=== PATIENT | female | born 1990 | race African-American/Black ===

== ENCOUNTER 2017-10-10 17:36 | Emergency (ER) | payer OTHER ==
--- NOTE | 2017-10-10 19:15 | CPEKG ---
Heart Rate: 91 RR Interval: 659 P-R Interval: 156 QRSD Interval: 78 QT Interval: 352 QTC Interval: 434 P Prospect: 45 QRS Prospect: 64 T Wave Prospect: 43 EKG Severity - NORMAL ECG - EKG Impression: SINUS RHYTHM Electronically Signed By: Cedrick Martin 13-Oct-2017 09:01:02
[2017-10-10] MEDS ORDERED: NS 1,000 ML IV ONE (19:40)
[2017-10-10] MEDS ORDERED: LORazepam 2 MG/ML INJ IVP ONE (19:40)
[2017-10-10 19:45] LABS: PLATELET COUNT 282 10^3/uL (150-400)
[2017-10-10] MEDS ORDERED: LORAZEPAM 1 MG PREPACK#4 BTL TAKEHOME ONE (20:58)
--- NOTE | 2017-10-10 20:58 | EDPHY ---
H & P Stated Complaint: CHEST TIGHTNESS AND DIARRHEA FOR 2.5 HRS - Personal History LMP (Females 10-55): Now Current Tetanus Diphtheria and Acellular Pertussis (TDAP): Yes - Medical/Surgical History Hx Asthma: No Hx Chronic Respiratory Disease: No Hx Diabetes: No Hx Cardiac Disease: No Hx Renal Disease: No Hx Cirrhosis: No Hx Alcoholism: No Hx HIV/AIDS: No Hx Splenectomy or Spleen Trauma: No Other PMH: SPINAL FUSION '06, DIOGO BREAST LUMPS REMOVED - Social History Smoking Status: Never smoked Time Seen by Provider: 10/10/17 19:06 HPI/ROS: Chief complaint: Palpitations, abdominal discomfort and diarrhea History of present illness: This is a 27-year-old female who presents to the emergency department for palpitations, abdominal discomfort and diarrhea. She reports the onset of symptoms today. That been persistent. She states she is under lot of stress and this feels like a stress reaction to her. She has had similar anxiety issues in the past. She denies other precipitating factors. She denies alleviating factors. She denies other associated signs or symptoms including no fevers, no nausea vomiting, no blood in stools, no urinary symptoms , no cough or trouble breathing, no pain or swelling in the legs. Review of systems: A 10 point review of systems was obtained and other than described above was negative (Will Heath) - Physical Exam Exam: General Appearance: Alert, nontoxic. Eyes: Pupils equal and round no pallor or injection. ENT, Mouth: Mucous membranes moist. Respiratory: There are no retractions, lungs are clear to auscultation. Cardiovascular: Regular rate and rhythm. Gastrointestinal: Abdomen is soft and non tender, no masses, bowel sounds normal. Neurological: Alert and oriented x4. Strength and sensation intact and symmetrical. Skin: Warm and dry, no rashes. Musculoskeletal: Neck is supple non tender. Extremities are symmetrical, full range of motion. No evidence of DVT by physical exam. Psychiatric: Patient is oriented X 3, there is no agitation. (Will Heath) Constitutional: Initial Vital Signs Temperature (C) 36.8 C 10/10/17 17:56 Heart Rate 97 10/10/17 17:56 Respiratory Rate 16 10/10/17 17:56 Blood Pressure 119/79 10/10/17 17:56 O2 Sat (%) 95 10/10/17 17:56 O2 Delivery Mode Room Air Allergies/Adverse Reactions: sulfamethoxazole [From Bactrim] Allergy (Verified 10/10/17 17:56) trimethoprim [From Bactrim] Allergy (Verified 10/10/17 17:56) Home Medications: Medication Instructions Recorded Claritin 10/10/17 Medical Decision Making ED Course/Re-evaluation: Patient is discussed with my secondary supervising physician Dr. Carmencita Damian. Patient presents with palpitations, abdominal discomfort and diarrhea. She is nontoxic. Her vital signs are stable. Physical exam is benign. Laboratory studies largely unremarkable. She has been IV hydrated and treated with 0.5 mg of Ativan. She is feeling much better. I believe this is likely anxiety related. I do not believe further evaluation or inpatient management is warranted at this time. She will be discharged home with a prepack of Ativan. It's use has been discussed. Home care has been discussed. She is to follow up with her primary care doctor next week for recheck. Strict return precautions were given. The patient voiced understanding and agreement with plan. (Will Heath) Differential Diagnosis: Included but not limited to anxiety, cardiac dysrhythmia, gastritis, gastroenteritis, biliary tract disease, (Will Heath) Other Provider: The patient was evaluated and managed by the Physician Automotive Service Professional. I discussed the patient's presentation and course with the midlevel provider with them and agree with the evaluation. My co-signature indicates that I have reviewed this chart and I agree with the findings and plan of care as documented. I am the secondary supervising physician. (Carmencita Damian) - Data Points Laboratory Results: Laboratory Results 10/10/17 19:23 10/10/17 19:23 Medications Given: Discontinued Medications Sodium Chloride (Ns) 1,000 mls @ 0 mls/hr IV EDNOW ONE; Wide Open PRN Reason: Protocol Stop: 10/10/17 19:41 Last Admin: 10/10/17 19:48 Dose: 1,000 mls Lorazepam (Ativan Injection) 0.5 mg IVP EDNOW ONE Stop: 10/10/17 19:41 Last Admin: 10/10/17 19:49 Dose: 0.5 mg Lorazepam (Ativan 1 Mg Prepack#4) 1 btl TAKEHOME EDNOW ONE Stop: 10/10/17 20:59 Last Admin: 10/10/17 21:57 Dose: 1 btl Departure - Departure Disposition: Home, Routine, Self-Care Clinical Impression: Palpitations Abdominal pain Qualifiers: Abdominal location: generalized Qualified Code(s): R10.84 - Generalized abdominal pain Diarrhea Qualifiers: Diarrhea type: unspecified type Qualified Code(s): R19.7 - Diarrhea, unspecified Condition: Good Instructions: Lorazepam (By mouth), Heart Palpitations (ED), Acute Diarrhea (ED ), Acute Abdominal Pain (ED) Additional Instructions: Follow-up with a primary care doctor on Friday for recheck You can take 1 mg Ativan every 12 hr for symptom control. Do not drink alcohol or take other drugs with it. If symptoms worsen or new symptoms develop return to the emergency room for recheck Referrals: NONE *PRIMARY CARE P,. [Primary Care Provider] - As per Instructions [facility],. [Clinic] - As per Instructions [facility],. [Clinic] - As per Instructions
[2017-10-10 21:17] VITALS: BP 115/84
== END 2017-10-10 21:57 | disposition home or self-care (01) ==
DX: R00.2 Palpitations (principal); R10.84 Generalized abdominal pain; R19.7 Diarrhea, unspecified
CPT/HCPCS: 96374; J2060

== ENCOUNTER → 2017-12-12 | Outpatient (CLI) | payer OTHER | LOC: FIMAGING 14:02 | DX: N63.10 Unspecified lump in the right breast, unspecified quadrant (principal) ==

== ENCOUNTER → 2018-01-14 | Outpatient (CLI) | payer OTHER | PROC: 0HBU3ZX Excision of Left Breast, Percutaneous Approach, Diagnostic (ICD-10-PCS; principal; 2018-01-14) | DX: D24.2 Benign neoplasm of left breast (principal) ==

== ENCOUNTER 2018-05-07 12:18 | Emergency (ER) | payer OTHER ==
--- NOTE | 2018-05-07 13:23 | EDPHY ---
H & P Stated Complaint: iNTERMITTENT PANIC ATTACKS X 2WKS. LASTING AN HOUR. Time Seen by Provider: 05/07/18 12:54 HPI/ROS: Chief Complaint: Palpitations HPI: 28-year-old woman presenting complaining of an episode of palpitations that last about an hour this morning. Patient states she has been having occasional episodes for the last 5 months but they seem to be increasing. Did not have any episodes last week with at 3 this week. She is describing getting a tingling sensation in the back of her neck. Her heart is pounding. She feels some mild shortness of breath. She has seen a physician in [place] for this in the past and had negative workup at that time. They attributed to stress. Patient states she has had increasing stress recently. She moved here from the [facility] 8 months ago for a job. Does not have any will call social support. She does not feel depressed. She is not suicidal. She has had a little bit of recent weight gain because she is eating more not exercising. No increasing thirst or urination. No leg pain or swelling. She did travel to [place] over the . No other periods of immobility. She works in [employer]. No family history of coronary artery disease or sudden cardiac . ROS: 10 systems were reviewed and were negative except those elements noted in the HPI. PMH: Scoliosis status post spinal fusion Social History: No smoking, no alcohol, no recreational drug use Family History: non-contributory Physical Exam: Gen: Awake, Alert, No Distress HEENT: Nose: no rhinorrhea Eyes: PERRLA, EOMI Mouth: Moist mucosa Neck: Supple, no JVD Chest: nontender, lungs clear to auscultation Heart: S1, S2 normal, no murmur Abd: Soft, non-tender, no guarding Back: no CVA tenderness, no midline tenderness Ext: no edema, non-tender Skin: no rash Neuro: CN II-XII intact, Sensation grossly intact, Strength 5/5 in bilateral upper and lower extremities - Personal History Current Tetanus/Diphtheria Vaccine: Yes - Medical/Surgical History Hx Asthma: No Hx Chronic Respiratory Disease: No Hx Diabetes: No Hx Cardiac Disease: No Hx Renal Disease: No Hx Cirrhosis: No Hx Alcoholism: No Hx HIV/AIDS: No Hx Splenectomy or Spleen Trauma: No Other PMH: SPINAL FUSION '06, DIOGO BREAST LUMPS REMOVED - Social History Smoking Status: Never smoked Constitutional: Initial Vital Signs Temperature (C) 36.6 C 05/07/18 12:21 Heart Rate 98 05/07/18 12:21 Respiratory Rate 18 05/07/18 12:21 Blood Pressure 108/73 05/07/18 12:21 O2 Sat (%) 98 05/07/18 12:21 O2 Delivery Mode Room Air Allergies/Adverse Reactions: sulfamethoxazole [From Bactrim] Allergy (Verified 05/07/18 12:21) trimethoprim [From Bactrim] Allergy (Verified 05/07/18 12:21) Home Medications: Medication Instructions Recorded NK [No Known Home Meds] 04/21/18 Medical Decision Making ED Course/Re-evaluation: 1407 patient is now asking to go home. She says she is about to work. Repeat ECG in CBC reassuring. Did not have any other blood test back at this time. I have told without these a cannot fully rule out acute process however she does appear well and does not have any red flags for acute cardiac, infectious or metabolic process. I have encouraged her to follow up with primary care doctor to him I will refer her. She will return for any concerns. She certainly could be having some anxiety and she does appear to have significant stressors. No risk factors for PE. Normal exam. - Data Points Laboratory Results: Laboratory Results 05/07/18 13:31 05/07/1818 05/07/18 13:31 13:31 13:31 WBC 7.80 10^3/uL 10^3/uL (3.80-9.50) RBC 5.05 10^6/uL 10^6/uL (4.18-5.33) Hgb 14.2 g/dL g/dL (12.6-16.3) Hct 43.8 % % (38.0-47.0) MCV 86.7 fL fL (81.5-99.8) MCH 28.1 pg pg (27.9-34.1) MCHC 32.4 g/dL g/dL (32.4-36.7) RDW 13.6 % % (11.5-15.2) Plt Count 294 10^3/uL 10^3/uL (150-400) MPV 9.6 fL fL (8.7-11.7) Neut % (Auto) 66.4 % % (39.3-74.2) Lymph % (Auto) 25.1 % % (15.0-45.0) [place] % (Auto) 6.4 % % (4.5-13.0) Eos % (Auto) 1.2 % % (0.6-7.6) Baso % (Auto) 0.6 % % (0.3-1.7) Nucleat RBC Rel Count 0.0 % % (0.0-0.2) Absolute Neuts (auto) 5.18 10^3/uL 10^3/uL (1.70-6.50) Absolute Lymphs (auto) 1.96 10^3/uL 10^3/uL (1.00-3.00) Absolute Monos (auto) 0.50 10^3/uL 10^3/uL (0.30-0.80) Absolute Eos (auto) 0.09 10^3/uL 10^3/uL (0.03-0.40) Absolute Basos (auto) 0.05 10^3/uL 10^3/uL (0.02-0.10) Absolute Nucleated RBC 0.00 10^3/uL 10^3/uL (0-0.01) Immature Gran % 0.3 % % (0.0-1.1) Immature Gran # 0.02 10^3/uL 10^3/uL (0.00-0.10) Sodium Pending Potassium Pending Chloride Pending Carbon Dioxide Pending Anion Gap Pending BUN Pending Creatinine Pending Estimated GFR Pending Glucose Pending Calcium Pending TSH Pending Beta HCG, Qual Pending Departure - Departure Disposition: Home, Routine, Self-Care Clinical Impression: Palpitations Condition: Good Instructions: Heart Palpitations (ED) Additional Instructions: Follow up with primary care physician in 2-3 days for further evaluation. Return to the emergency department for worsening lightheadedness, fainting, uncontrolled upper heart rate. Chest pain, shortness of breath, or any other concerns. Referrals: Miko Wilhelm MD [Medical Doctor] - As per Instructions
[2018-05-07 14:00] LABS: PLATELET COUNT 294 10^3/uL (150-400)
[2018-05-07 14:24] VITALS: BP 110/70
--- NOTE | 2018-05-07 20:15 | CPEKG ---
Test Reason : OPEN Blood Pressure : / mmHG Vent. Rate : 100 BPM Atrial Rate : 101 BPM P-R Int : 141 ms QRS Dur : 088 ms QT Int : 340 ms P-R-T Axes : 037 043 043 degrees QTc Int : 439 ms Sinus tachycardia Confirmed by Alberto Jung ([id number]) on 05/07/2018 8:14:15 PM Referred By: Confirmed By:Alberto Jung
== END 2018-05-07 14:24 | disposition home or self-care (01) ==
DX: R00.2 Palpitations (principal); Z98.1 Arthrodesis status

== ENCOUNTER 2018-05-20 09:27 | Emergency (ER) | payer OTHER ==
[2018-05-20] MEDS ORDERED: LORazepam 0.5 MG TAB PO ONE (10:31)
[2018-05-20] MEDS ORDERED: LORazepam 0.5 MG TAB ONE (10:31)
--- NOTE | 2018-05-20 10:37 | EDPHY ---
HPI/HX/ROS/PE/MDM Narrative: CLINICAL IMPRESSION: Subjective palpitations, intermittent paresthesias ASSESSMENT/PLAN: 28-year-old female presents to the emergency department for the 3rd time in 2 months with complaints of intermittent palpitations, intermittent right-sided paresthesias, subjective right foot warmth, intermittent headaches, and generalized malaise. Patient reports the symptoms have been going on for many years, she has seen several specialists for these both in [place] and [place] where she comes from. She has seen a clinical massage therapist including having a Holter monitor that was unremarkable. She has seen psychiatry who felt there may be an anxiety component and she took daily SSRIs but not like how they made her feel. She has not seen a neurologist and admits that after doing online research she is concerned that she has something fatal or might have MS. Repeat labs today showed no electrolyte imbalance, metabolic disturbance, leukocytosis. She had recent normal thyroid test. EKG shows normal sinus rhythm, no ST changes, Brugada, WPW, S1 q.3h T3, or prolonged PA or QT interval. Previous urine studies were also normal. I do not feel this patient requires emergent CT head or MRI. I did encourage her to follow up in Neurology and she was given referrals. She has met with [facility] in the past and has information regarding outpatient psychiatry. She is established with a counselor. She received 0.5 mg of Ativan in the ED with improvement in her symptoms and a small prescription was given. I encouraged PCP follow-up. Warning signs return to ED sooner outlined in discharge papers DIFFERENTIAL DX: Differential includes but not limited to cardiac arrhythmia, SVT, hyperthyroidism, hypothyroidism, electrolyte imbalance, dehydration, infectious etiology, anxiety or panic ED PROCEDURES: See lab results below ED COURSE: 11:05 a.m.. EKG read and interpreted by myself and also shown to Dr. Luke as normal sinus rhythm, no acute ST or T-wave changes, QT prolongation, Brugada, WPW, or S1q3T3. Labs without abnormality. Very mild anemia. I had a lengthy discussion with the patient regarding her symptoms. I do not feel she needs a emergent MRI and she is concerned about MS. We discussed neurology follow-up and PCP establishment. Referrals were given. Patient received a 0.5 mg of Ativan in the ED with improvement in symptoms. CHIEF COMPLAINT: Intermittent heart racing, trembling, headache, sweating HPI: This is a otherwise healthy 28-year-old female who presents to the emergency department for the 3rd time in 2 months with vague complaints of chronic, intermittent palpitations, trembling, right foot warmth and tingling, right- sided headaches, unilateral body sweats, and intermittent vision changes. 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 She admits that many of her symptoms may be due to anxiety but she feels that there may also be a physical cause. She has been evaluated by a clinical massage therapist in [place], pipefitter helper in [place], she is currently seeing a counselor and feels that is helping with some of her life problems, she also saw a psychiatrist in the past who thought this might be anxiety but she did not like how she felt with anxiety medications. She has not yet seen a neurologist. She has no reports of personal or family cardiac disease at young age and no known congenital heart abnormality. There is a family history of prostate and gynecologic cancers. She is a nonsmoker, does not abuse marijuana, drinks socially, does not take illicit drugs. Over the last several weeks she has noted some intermittent vision changes, not typically associated with computer work. Patient admits that she"got caught in the web MD trap"and that she is concerned she has something that is potentially life-threatening like multiple sclerosis. She does not have a local primary care provider which is why she returns to the ED. However she voices concerned that the last time she was here she felt as though people thought she was"crazy ". She states symptoms can occur outside of feeling stressed but that when they occur she begins to feel more panicked. She is planning on flying home on Friday for the holidays. PMH: None reported Pertinent Past Surgical History: None reported Family History: No family history of ACS at an early age Social History: Nonsmoker, works as an [employer], no illicit drug abuse, drinks alcohol socially REVIEW OF SYSTEMS: All other systems negative Constitutional: No fever, no chills, appetite change. Eyes: No discharge, vision change ENT: No sore throat, congestion, ear pain. Cardiovascular: No chest pain, history palpitations. Respiratory: No cough, no shortness of breath. Gastrointestinal: No abdominal pain, no vomiting, diarrhea. Genitourinary: No hematuria, dysuria, flank pain, pelvic pain Musculoskeletal: No back pain, joint swelling, joint pain, myalgias. Skin: No rashes, color change. Neurological: History of headache, dizziness, no weakness. PHYSICAL EXAM: General Appearance: Alert, oriented, appropriate, cooperative, NAD, well hydrated, non-toxic appearing, VSS, no hypoxia, intermittently tearful. HEENT: TMs are clear bilaterally no perforation or FB, no injection, no evidence of serous or mucopurulent otitis. Oropharynx clear is no erythema or exudates, no tonsillar hypertrophy or asymmetry. Dentition without abnormality. Eyes: PERRLA, no acute vision change, nystagmus, swelling, discharge, pain or photosensitivity. Conjunctiva pink, no pallor or injection Neck: Supple, nontender, no lymphadenopathy, no midline pain, FROM, no meningismus. Respiratory: There are no retractions, lungs are clear to auscultation. Cardiac: Regular rate and rhythm, no murmurs or gallops. Gastrointestinal: Abdomen is soft, nontender, bowel sounds normal, no masses/ hernia, no rigidity, guarding or focal peritoneal findings. Neurological: Alert and oriented x 3, CN 2-12 grossly intact, normal gait no ataxia, DTR's intact, normal sensation and strength. Normal cerebellar findings. NIH score of 0 with no limb ataxia Skin: Warm, dry, no rashes, no nodules on palpation. Musculoskeletal: Extremities are symmetrical, full range of motion, no tenderness, deformity, swelling, or erythema. Psychiatric: Patient is oriented X 3, there is no agitation. MEDICAL DECISION MAKING: Patient was seen independently. Secondary supervising physician at time of evaluation was Dr Luke . Diagnosis: Intermittent palpitations, paresthesias. New, requires workup Summary: See Assessment and Plan for summary of ED visit Clinical lab tests: ordered / reviewed. Independent visualization of images, tracing, or specimens: Yes. Review / Summarize previous medical records: Reviewed prior ED records Patient Progress: Stable. - Data Points Laboratory Results: Laboratory Results 05/20/18 10:00 05/20/18 10:00 05/20/18 05/20/18 05/20/18 10:00 10:00 10:00 WBC 5.04 10^3/uL 10^3/uL (3.80-9.50) RBC 4.41 10^6/uL 10^6/uL (4.18-5.33) Hgb 12.2 g/dL L g/dL (12.6-16.3) Hct 36.8 % L % (38.0-47.0) MCV 83.4 fL fL (81.5-99.8) MCH 27.7 pg L pg (27.9-34.1) MCHC 33.2 g/dL g/dL (32.4-36.7) RDW 13.4 % % (11.5-15.2) Plt Count 280 10^3/uL 10^3/uL (150-400) MPV 9.0 fL fL (8.7-11.7) Neut % (Auto) 61.4 % % (39.3-74.2) Lymph % (Auto) 30.2 % % (15.0-45.0) [place] % (Auto) 6.2 % % (4.5-13.0) Eos % (Auto) 1.4 % % (0.6-7.6) Baso % (Auto) 0.6 % % (0.3-1.7) Nucleat RBC Rel Count 0.0 % % (0.0-0.2) Absolute Neuts (auto) 3.10 10^3/uL 10^3/uL (1.70-6.50) Absolute Lymphs (auto) 1.52 10^3/uL 10^3/uL (1.00-3.00) Absolute Monos (auto) 0.31 10^3/uL 10^3/uL (0.30-0.80) Absolute Eos (auto) 0.07 10^3/uL 10^3/uL (0.03-0.40) Absolute Basos (auto) 0.03 10^3/uL 10^3/uL (0.02-0.10) Absolute Nucleated RBC 0.00 10^3/uL 10^3/uL (0-0.01) Immature Gran % 0.2 % % (0.0-1.1) Immature Gran # 0.01 10^3/uL 10^3/uL (0.00-0.10) Sodium 141 mEq/L mEq/L (135-145) Potassium 3.8 mEq/L mEq/L (3.5-5.2) Chloride 108 mEq/L mEq/L (97-110) Carbon Dioxide 22 mEq/l mEq/l (22-31) Anion Gap 11 mEq/L mEq/L (6-14) BUN 9 mg/dL mg/dL (7-23) Creatinine 0.8 mg/dL mg/dL (0.6-1.0) Estimated GFR > 60 Glucose 89 mg/dL mg/dL (70-100) Calcium 9.0 mg/dL mg/dL (8.5-10.4) Beta HCG, Qual NEGATIVE Medications Given: Discontinued Medications Lorazepam (Ativan) 0.5 mg PO EDNOW ONE Stop: 05/20/18 10:32 Last Admin: 05/20/18 10:33 Dose: 0.5 mg General Time Seen by Provider: 05/20/18 09:57 Initial Vital Signs: Initial Vital Signs Temperature (C) 36.9 C 05/20/18 09:36 Heart Rate 92 05/20/18 09:36 Respiratory Rate 16 05/20/18 09:36 Blood Pressure 103/73 05/20/18 09:36 O2 Sat (%) 99 05/20/18 09:36 O2 Delivery Mode Room Air Allergies/Adverse Reactions: sulfamethoxazole [From Bactrim] Allergy (Verified 05/20/18 09:36) trimethoprim [From Bactrim] Allergy (Verified 05/20/18 09:36) Home Medications: Medication Instructions Recorded LORazepam [Ativan] 1 tab PO BID PRN #6 tab 05/20/18 Departure - Departure Disposition: Home, Routine, Self-Care Clinical Impression: Intermittent palpitations, Paresthesias/numbness Condition: Good Instructions: Heart Palpitations (ED), Paresthesia (ED) Additional Instructions: DISCHARGE INSTRUCTIONS FROM YOUR DOCTOR Thank you for visiting our emergency department today. Please keep in mind that discharge from the emergency department does not mean that there is nothing wrong - it simply means that we have not identified an emergency condition that requires further evaluation or treatment in the hospital. You should always plan to follow up with primary care for re-evaluation of your condition in the next 2-3 days. If you have been referred to a specialist, please call as soon as possible (today or tomorrow) to schedule your follow up appointment at the appropriate time. We repeated your EKG and standard laboratory tests in the emergency room today. You have no abnormal cardiac rhythm or sign of heart attack. Your electrolytes are all normal. You have very mild anemia and you may want to consider a multivitamin with iron. Thyroid studies at recent ER visit were normal. The remainder of your lab tests are also normal. Recent urine tests were normal. We do not believe you need an emergent MRI scan of her brain today and would recommend that you talk to a neurologist about the symptoms you are experiencing. A referral was given, please tell them you're in the emergency department to be recommended follow-up within the next week. I also gave you a referral for primary care provider if you do not have one. Please monitor symptoms closely. Return to the emergency department for worsening symptoms or any other concerns. People present with illnesses and injuries in different ways, and it is always possible that we have missed something. You may always return for re-evaluation if symptoms worsen or if they are not improving or if you develop new/different symptoms. Again, thank you for choosing our emergency department. We hope that you feel better. Referrals: NONE *PRIMARY CARE P,. [Primary Care Provider] - As per Instructions Jose Mari MD [Medical Doctor] - 2-3 days, call for appt. Andre Mari DO [Doctor of Osteopathy] - 1-2 days without fail Prescriptions: LORazepam [Ativan] 1 tab PO BID PRN #6 tab PRN Reason: Anxiety
[2018-05-20 10:39] LABS: PLATELET COUNT 280 10^3/uL (150-400)
[2018-05-20 11:30] VITALS: BP 97/72
--- NOTE | 2018-05-20 15:02 | CPEKG ---
Test Reason : OPEN Blood Pressure : / mmHG Vent. Rate : 091 BPM Atrial Rate : 091 BPM P-R Int : 150 ms QRS Dur : 084 ms QT Int : 341 ms P-R-T Axes : 038 049 042 degrees QTc Int : 420 ms Sinus rhythm Confirmed by Kiana Luke ([id number]) on 05/20/2018 3:01:23 PM Referred By: Confirmed By:Kiana Luke
== END 2018-05-20 11:37 | disposition home or self-care (01) ==
DX: R00.2 Palpitations (principal); R20.2 Paresthesia of skin

== ENCOUNTER 2018-08-04 12:54 | Emergency (ER) | payer OTHER ==
[2018-08-04 13:05] VITALS: BP 104/80
--- NOTE | 2018-08-04 13:28 | EDPHY ---
H & P Stated Complaint: dizzy, lightheaded, left arm tingling previous dx anxiety for similar symp Time Seen by Provider: 08/04/18 13:17 HPI/ROS: CHIEF COMPLAINT: Anxiety attack HISTORY OF PRESENT ILLNESS: The patient is a 28-year-old female who is been here several times recently for anxiety attacks. She states that she was at work today and nothing particular stressful was happening when she suddenly felt panic and felt like she was going to . She began hyperventilating and then had tingling in both of her arms and legs. Her feet felt cold. After about an hour she came to the emergency department but then her symptoms resolved. She is now asymptomatic. Her vital signs are stable. She states that she has had extensive workup the past including Holter monitors, cardiology and neurology consultations and in the end every one told her that her symptoms are from anxiety. She did take gabapentin and an SSRI for some time but she did not like the way it made her feel. She has not had a fever. She did have a sore throat last week and was prescribed Ceftin which she has taken 4 days of. She states that her throat is feeling much better. She does not have any rescue medication. Severity: Severe Modifying factors: Resolved REVIEW OF SYSTEMS: Constitutional: denies: chills, fever, recent illness, recent injury EENTM: denies: blurred vision, double vision, nose congestion Respiratory: denies: cough, shortness of breath Cardiac: denies: chest pain, irregular heart rate, lightheadedness, palpitations Gastrointestinal/Abdominal: denies: abdominal pain, diarrhea, nausea, vomiting, blood streaked stools Genitourinary: denies: dysuria, frequency, hematuria, pain Musculoskeletal: denies: joint pain, muscle pain Skin: denies: lesions, rash, jaundice, bruising Neurological: denies: headache, numbness, paresthesia, tingling, dizziness, weakness Hematologic/Lymphatic: denies: blood clots, easy bleeding, easy bruising Immunologic/allergic: denies: HIV/AIDS, transplant 10 systems reviewed and negative except as noted EXAM: GENERAL: Well-appearing, well-nourished and in no acute distress. HEAD: Atraumatic, normocephalic. EYES: Pupils equal round and reactive to light, extraocular movements intact, sclera anicteric, conjunctiva are normal. ENT: TMs normal, nares patent, oropharynx clear without exudates. Moist mucous membranes. NECK: Normal range of motion, supple without lymphadenopathy or JVD. LUNGS: Breath sounds clear to auscultation bilaterally and equal. No wheezes rales or rhonchi. HEART: Regular rate and rhythm without murmurs, rubs or gallops. ABDOMEN: Soft, nontender, normoactive bowel sounds. No guarding, no rebound. No masses appreciated. BACK: No CVA tenderness, no spinal tenderness, step-offs or deformities EXTREMITIES: Normal range of motion, no pitting or edema. No clubbing or cyanosis. NEUROLOGICAL: Cranial nerves II through XII grossly intact. Normal speech, normal gait. 5/5 strength, normal movement in all extremities, normal sensation , normal reflexes PSYCH: Normal mood, normal affect. SKIN: Warm, dry, normal turgor, no visible rashes or lesions. Source: Patient Exam Limitations: No limitations - Personal History LMP (Females 10-55): Now Current Tetanus/Diphtheria Vaccine: Unsure Current Tetanus Diphtheria and Acellular Pertussis (TDAP): Unsure - Medical/Surgical History Hx Asthma: No Hx Chronic Respiratory Disease: No Hx Diabetes: No Hx Cardiac Disease: No Hx Renal Disease: No Hx Cirrhosis: No Hx Alcoholism: No Hx HIV/AIDS: No Hx Splenectomy or Spleen Trauma: No Other PMH: SPINAL FUSION '06, DIOGO BREAST LUMPS REMOVED, anxiety - Family History Significant Family History: No pertinent family hx - Social History Smoking Status: Never smoked Alcohol Use: None Constitutional: Initial Vital Signs Temperature (C) 36.6 C 08/04/18 13:00 Heart Rate 98 08/04/18 13:00 Respiratory Rate 16 08/04/18 13:00 Blood Pressure 104/80 08/04/18 13:00 O2 Sat (%) 99 08/04/18 13:00 O2 Delivery Mode Room Air Allergies/Adverse Reactions: Penicillins Allergy (Mild, Verified 08/04/18 13:03) Rash sulfamethoxazole [From Bactrim] Allergy (Verified 08/04/18 13:03) trimethoprim [From Bactrim] Allergy (Verified 08/04/18 13:03) Home Medications: Medication Instructions Recorded Cefdinir 08/04/18 Medical Decision Making - Diagnostics EKG Interpretation: An EKG obtained and was read and documented in trace view. Please see trace view for full reading and report. Sinus rhythm no acute ischemic changes or arrhythmias ED Course/Re-evaluation: The patient is now feeling normal. We reviewed her vital signs. She agrees to getting an EKG. She does not wish to have blood work drawn otherwise. I offered the the rescue medication such as Ativan but she states she does not like the way it makes her feel. She has twice this keeps happening. We discussed possibilities a plans for managing it. She felt reassured and apologized for coming here. We reassured her that she does not need to apologize. She declines monitoring Differential Diagnosis: Partial list of the Differential diagnosis considered include but were not limited to; anxiety attack, panic and although unlikely based on the history and physical exam, I also considered neuropathy, acute coronary disease, arrhythmia, MS, Guillain-Hermiston. I discussed these differential diagnoses and the plan with the patient as well as the usual and expected course. The patient understands that the diagnosis is provisional and that in medicine we are not always correct and that further workup is often warranted. Usual and customary warnings were given. All of the patient's questions were answered. The patient was instructed to return to the emergency department should the symptoms at all worsen or return, otherwise to followup with the physician as we discussed. Departure - Departure Disposition: Home, Routine, Self-Care Clinical Impression: Panic attack Condition: Good Instructions: Panic Attack (ED) Referrals: NONE *PRIMARY CARE P,. [Primary Care Provider] - 2-3 days, if not improved Luciana Herr MD [Medical Doctor] - 2-3 days, if not improved
--- NOTE | 2018-08-04 13:32 | CPEKG ---
Test Reason : OPEN Blood Pressure : / mmHG Vent. Rate : 094 BPM Atrial Rate : 094 BPM P-R Int : 163 ms QRS Dur : 083 ms QT Int : 343 ms P-R-T Axes : 068 049 047 degrees QTc Int : 429 ms Sinus rhythm Low voltage, precordial leads Confirmed by Darnell Fitzgerald ([id number]) on 08/04/2018 1:32:21 PM Referred By: Darnell Fitzgerald Confirmed By:Darnell Fitzgerald
== END 2018-08-04 13:42 | disposition home or self-care (01) ==
DX: F41.0 Panic disorder [episodic paroxysmal anxiety] (principal)

== ENCOUNTER → 2018-08-13 | Outpatient (CLI) | payer OTHER | LOC: FIMAGING 19:34 | PROVIDERS: ATTEND Physician Assistant Medical | DX: R51 Headache (principal); R20.2 Paresthesia of skin | CPT/HCPCS: 70551-PN ==